=== PATIENT | male | born 1990 | race Caucasian/White ===

== ENCOUNTER → 2021-03-26 10:12 | Outpatient (CLI) | payer OTHER, SELFPAY ==
--- NOTE | ~2021-03-26 | CT_ITS ---
EXAMINATION: CT abdomen pelvis w con INDICATION: Abdominal distention TECHNIQUE: Computed tomographic images of the abdomen and pelvis were obtained after the administrati on of 100 cc of Omnipaque 350 intravenous contrast. The dose-length product (DLP) was 1196.57 mGy-cm. Automated exposure control and iterative reconstruction technique were employed. COMPARISON: None available FINDINGS: Minimal dependent atelectasis is present in the lung bases. The heart size is normal. The l iver, spleen, pancreas, gallbladder, and adrenal glands are normal. There is a 2.6 cm cyst of the lef t kidney. The right kidney is unremarkable. No pathologically enlarged abdominal or pelvic lymph node s are identified. There is no free intraperitoneal gas or evidence of bowel obstruction. The appendix is normal. IMPRESSION: 1. No CT correlate for the patient's symptoms. Reviewed, dictated and finalized at location B.
== END ==
PROVIDERS: PCP Family Medicine; Visit Provider Family Medicine
DX: R14.0 Abdominal distension (gaseous) (principal); N28.89 Other specified disorders of kidney and ureter
CPT/HCPCS: 74177; Q9967

== ENCOUNTER 2021-06-09 01:08 | Day surgery (SDC) | payer OTHER, SELFPAY ==
[2021-05-27 14:10] VITALS: BMI 33.5
--- NOTE | 2021-06-09 06:56 | WPDGICN ---
Assessment and Plan Assessment and plan (1) GERD (gastroesophageal reflux disease): Qualifiers: Esophagitis presence: without esophagitis Qualified Code(s): K21.9 - Gastro-esophageal reflux disease without esophagitis Code(s): K21.9 - Gastro-esophageal reflux disease without esophagitis Status: Acute Assessment and Plan: EGD with possible biopsy or dilatation or cautery. GI Consult Note Consult date/time: 06/09/21 06:56 HPI: Thuan Romo is a 31 year old male Who suffers from gastroesophageal reflux symptoms. Many foods he avoids because they make him uncomfortable; give him discomfort in his epigastric area or up into the throat. he gave up many foods such as coffee, spices, tomato based products to try to improve his symptoms naturally and he is actually feeling better. He is hoping he can get back to eating normal food again. He has been taking pantoprazole for 3 months and feels that has helped.He also has any extreme problem with insomnia. Review of Systems Review of Systems: All systems reviewed & are unremarkable except as noted in HPI and below PMFSH Past Medical History Medical History Asthma BMI 33.0-33.9,adult BMI 34.0-34.9,adult GERD (gastroesophageal reflux disease) Family History Family History Father Hypertension Family history of diabetes mellitus in first degree relative Mother Hypertension Diabetes mellitus Fibromyalgia Grandparent Family history of coronary artery disease Sibling Hypothyroid Other Carcinoma of colon Family history of malignant neoplasm of cervix Family history of malignant neoplasm of ovary Family history of primary malignant neoplasm of liver Social History Social History Second hand tobacco smoke exposure: No Alcohol intake: current Drinks per week: 1 Alcohol use details: beer, wine Substance use: never Substance use type: does not use Living arrangements: with family 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 Gender identity (if verbalized by the patient): Male Spiritual care concerns: No Agree to blood products: Yes Meds Home Medications and Allergies Home Medications Medication Instructions Recorded Confirmed Type alprazolam 0.25 mg tablet 0.25 mg PO BID PRN #30 tablet 04/13/21 05/31/21 Rx trazodone 50 mg tablet 50 mg PO .qhs #30 tablet 05/10/21 05/31/21 Rx pantoprazole 40 mg tablet,delayed 40 mg PO QAM #30 tablet 05/19/21 05/31/21 Rx release paroxetine HCl 10 mg tablet 10 mg PO DAILY #30 tablet 05/26/21 05/31/21 Rx hydroxyzine pamoate 25 mg capsule 25 mg PO TID PRN #30 cap 06/01/21 06/09/21 Rx Allergies Allergy/AdvReac Type Severity Reaction Status Date / Time codeine Allergy Unknown Unknown Verified 05/27/21 14:09 erythromycin base Allergy Unknown Unknown Verified 05/27/21 14:09 Exam Const: General: alert Orientation/consciousness: patient oriented x3 Resp: Auscultation: clear to auscultation bilaterally Cardio: Rhythm: regular rhythm GI: GI Palp: Yes Soft to palpation and No Tenderness to palpation present (GI) Neuro: General: patient oriented x3
--- NOTE | 2021-06-09 07:02 | P.PNAN_ITS ---
Anes - Initial Pre Proc Eval Procedure: Operation Date: 06/09/21 10:00 Proposed Procedures p Esophagogastroduodenoscopy - Darion Rosales MD Date/Time: 06/09/21 07:02 Surgeon: Darion Rosales MD Pre Op Diagnosis: GERD Patient Data Age: 31 Gender: M Height: 1.8 m Weight: 109 kg Allergies Allergy/AdvReac Type Severity Reaction Status Date / Time codeine Allergy Unknown Unknown Verified 05/27/21 14:09 erythromycin base Allergy Unknown Unknown Verified 05/27/21 14:09 Home Medications Medication Instructions Recorded Confirmed Type alprazolam 0.25 mg tablet 0.25 mg PO BID PRN #30 tablet 04/13/21 05/31/21 Rx trazodone 50 mg tablet 50 mg PO .qhs #30 tablet 05/10/21 05/31/21 Rx pantoprazole 40 mg tablet,delayed 40 mg PO QAM #30 tablet 05/19/21 05/31/21 Rx release paroxetine HCl 10 mg tablet 10 mg PO DAILY #30 tablet 05/26/21 05/31/21 Rx hydroxyzine pamoate 25 mg capsule 25 mg PO TID PRN #30 cap 06/01/21 Rx Patient hx anesthesia problems: none Family hx anesthesia problems: none Results Review: All pre-operative results and documents have been reviewed as part of the pre-operative evaluation. [facility] Past Medical History Medical History (Updated 06/09/21 @ 07:03 by Yossi Jay DO) Asthma BMI 33.0-33.9,adult BMI 34.0-34.9,adult GERD (gastroesophageal reflux disease) Family History Family History Father Hypertension Family history of diabetes mellitus in first degree relative Mother Hypertension Diabetes mellitus Fibromyalgia Grandparent Family history of coronary artery disease Sibling Hypothyroid Other Carcinoma of colon Family history of malignant neoplasm of cervix Family history of malignant neoplasm of ovary Family history of primary malignant neoplasm of liver Social History Social History Second hand tobacco smoke exposure: No Alcohol intake: current Drinks per week: 1 Alcohol use details: beer, wine Substance use: never Substance use type: does not use Living arrangements: with family 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 Gender identity (if verbalized by the patient): Male Spiritual care concerns: No Agree to blood products: Yes Anes - Eval Final PreProcedure Day of Procedure 06/09/21 07:02 Patient weight: obese Heart: regular rate and rhythm Lungs: clear to auscultation and normal air movement Airway: Mallampati scale class II Neurological: alert and oriented Last oral intake: >/= 8 hours ASA classification: II Emergent: no Anesthetic plan: proceed Anesthesia type and monitoring: general GIVS and standard monitoring Results Review: All pre-operative results and documents have been reviewed as part of the pre-operative evaluation. Informed Consent: The patient's anesthetic plan and its attendant risks and benefits were discussed with the patient/family/POA. Questions were solicited and answers provided to the satisfaction of the patient/family/POA.
[2021-06-09 08:40] VITALS: BP 139/87; PULSE 80; RESP 18; TEMP 36.1; O2SAT 97; BMI 33.9
[2021-06-09] MEDS: LACTATED RINGERS 1,000 ML 150 ML IV CONT (09:12)
[2021-06-09 09:55] VITALS: BP 112/74; PULSE 77; RESP 19; O2SAT 96
[2021-06-09 10:05] VITALS: BP 123/84; PULSE 74; RESP 25; O2SAT 98
[2021-06-09 10:15] VITALS: BP 122/90; PULSE 64; RESP 23; O2SAT 94
== END 2021-06-09 10:22 | disposition home or self-care (01) ==
PROVIDERS: PCP Family Medicine; Visit Provider Internal Medicine Gastroenterology
PROC: 0DJ08ZZ Inspection of Upper Intestinal Tract, Via Natural or Artificial Opening Endoscopic (ICD-10-PCS; CPT 43235; principal; 2021-06-09 10:00)
DX: K21.9 Gastro-esophageal reflux disease without esophagitis (principal); E66.9 Obesity, unspecified; Z68.33 Body mass index [BMI] 33.0-33.9, adult
CPT/HCPCS: 43235; J2001; J2704; J7120

== ENCOUNTER 2023-07-17 13:54 | Outpatient (CLI) | payer BC, SELFPAY ==
--- NOTE | ~2023-07-17 | XR_ITS ---
EXAM: XR cervical spine 4-5V DATE: 07/17/2023 14:09 HISTORY: M54.2 - Cervicalgia . COMPARISON: CT C-spine 05/29/2006. FINDINGS: Craniocervical association and atlantoaxial joint are aligned. No prevertebral soft tissue swelling. Adenoid hypertrophy. Trace retrolistheses at C3-4 and C5-6. Remaining vertebral bodies are aligned. Vertebral body heights are maintained. Mild disc space narrowing at C3-4 and C5-6. Normal f acets and posterior elements. IMPRESSION: Minimal retrolistheses and mild degenerative disc disease at C3-4 and C5-6. Reviewed, dictated and finalized at location K. FEST/ORDER ORGANIZER PRINT ORDERS IMPRESSION: Minimal retrolistheses and mild degenerative disc disease at C3-4 a nd C5-6.
== END 2023-07-17 13:55 ==
LOC: MICIMG 13:56
PROVIDERS: PCP Physician Assistant; Visit Provider Physician Assistant
DX: M43.12 Spondylolisthesis, cervical region (principal); M50.322 Other cervical disc degeneration at C5-C6 level; M50.31 Other cervical disc degeneration, high cervical region
CPT/HCPCS: 72050

== ENCOUNTER 2023-11-20 08:39 | Outpatient (CLI) | payer BC, SELFPAY ==
--- NOTE | ~2023-11-20 | MM_ITS ---
EXAMINATION: MM diagnostic cindy BI w evin HISTORY: Generalized lumpiness TECHNIQUE: 3-D tomosynthesis images of the bilateral breasts were performed and synthetic 2-D images were generated. CAD analysis was submitted and interpreted. COMPARISON: None FINDINGS: Breast parenchyma is predominantly fatty replaced. No suspicious mass lesion or distortion seen in either breast. No suspicious microcalcifications. IMPRESSION: No mammographic evidence for malignancy. BI-RADS Category 1: Negative Reviewed, dictated and finalized at location .
== END 2023-11-20 08:40 ==
LOC: MICIMG 08:40
PROVIDERS: PCP Family Medicine; Visit Provider Nurse Practitioner Family
DX: N63.0 Unspecified lump in unspecified breast (principal); R92.8 Other abnormal and inconclusive findings on diagnostic imaging of breast
CPT/HCPCS: 77062; 77066; G0279

== ENCOUNTER 2024-08-06 17:30 | Emergency (ER) | payer OTHER, SELFPAY ==
[2024-08-06 17:40] VITALS: BP 143/77; PULSE 87; RESP 16; TEMP 37.9; O2SAT 97
--- NOTE | 2024-08-06 17:51 | ED_ITS ---
HPI - URI/Sore Throat General Chief Complaint: Upper Respiratory Infection Stated Complaint: Sinus / RT Eye swollen Time Seen by Provider: 08/06/24 17:45 Source: patient Mode of arrival: ambulatory Limitations: no limitations History of Present Illness HPI Narrative: Thuan is a 34-year-old male patient presenting to the clinic today with complaints of sinus congestion and right eyelid swelling. He reports he noticed a stye there last week and placed some E-Mycin ointment in that resolved however now he has developed some redness and swelling to the right upper eyelid. He denies any pain or itching at this time. Temperature is 37.9? C in the clinic today. States he has had nasal congestion and pressure for the past 2 weeks. History of chronic sinusitis. Saw his primary care doctor 8 days ago and they gave him a shot of Rocephin in the office for chronic sinusitis. They also gave him air supra inhaler for bronchitis. MD elicited complaint: sore throat and nasal congestion Related Data Allergies Allergy/AdvReac Type Severity Reaction Status Date / Time codeine AdvReac Intermediate Rash Verified 08/06/24 17:50 erythromycin base AdvReac Intermediate Rash Verified 08/06/24 17:50 Review of Systems Review of Systems: Pertinent positives per HPI. Patient denies any fever, chills, rash, visual changes, dizziness, shortness of breath, chest pain, palpitations, nausea, vomiting, diarrhea, constipation, abdominal pain, or any urinary issues. [facility] Past Medical History Medical History (Updated 08/06/24 @ 17:59 by Elfego Tirado APRN) BMI 36.0-36.9,adult Otitis media of left ear Impacted cerumen of both ears Persistent headaches Asthma GERD (gastroesophageal reflux disease) Surgical History Surgical History Hx of tonsillectomy Family History Family History Father Hypertension Family history of diabetes mellitus in first degree relative Diabetes mellitus Mother Hypertension Diabetes mellitus Fibromyalgia Grandparent Family history of coronary artery disease Sibling Hypothyroid Other Carcinoma of colon Family history of malignant neoplasm of cervix Family history of malignant neoplasm of ovary Family history of primary malignant neoplasm of liver Social History Social History Smoking status: Never smoker Second hand tobacco smoke exposure: Yes Alcohol intake: current Drinks per week: 1 Alcohol use details: beer, wine Substance use: never Substance use type: does not use Do You Feel Safe in your Home?: Yes Lack of Transportation: No Lack of Food: Never True Current Housing: I Have Housing Concerned About Future Housing: No Difficulty Paying Gas/Electric Bills: No Difficulty Paying for Meds: No Currently Unemployed: No Education: Associate Degree Difficulty w/ Childcare or Family Care: No Living arrangements: with family Occupation/Education: occupation 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 There is no relevant family history pertinent to the patient complaint. Exam Narrative: General: Well-developed, well nourished, in no apparent distress Head: Normocephalic, atraumatic Eyes: Pupils equally round and reactive to light bilaterally, EOM intact, sclera and conjunctive clear, no discharge, lids normal Ears: TMs intact and clear, ear canals clear, no drainage, grossly hearing normal. Nose: Nares patent, clear nasal discharge, moderate inflammation, ethmoid and maxillary sinus tenderness. Mouth: Oral pharynx without lesions or masses, good dentition, MMM. Postnasal drip Neck: Supple, trachea midline, no enlargement of anterior or posterior cervical nodes, no thyroid masses or goiter palpable. Cardio: Regular rate and rhythm, s1 and s2 normal, no murmur appreciated. Resp: Clear to auscultation bilaterally, no rhonchi, rales, wheezing or rubs Course Course Emergency Course: Portions of this record may have been created with voice recognition software. Level of Care: Express Care Visit Vital Signs Vital signs: Vital Signs Temperature 37.9 C H 08/06/24 17:40 Pulse Rate 87 08/06/24 17:40 Respiratory Rate 16 08/06/24 17:40 Blood Pressure 143/77 H 08/06/24 17:40 Pulse Oximetry 97 08/06/24 17:40 Oxygen Delivery Room Air 08/06/24 17:40 Temperature 37.9 C H 08/06/24 17:40 Pulse Rate 87 08/06/24 17:40 Respiratory Rate 16 08/06/24 17:40 Blood Pressure 143/77 H 08/06/24 17:40 Pulse Oximetry 97 08/06/24 17:40 Oxygen Delivery Room Air 08/06/24 17:40 Vital signs reviewed MDM - URI/Sore Throat MDM Narrative Medical decision making narrative: At the time of visit patient is resting comfortably on the exam table. Patient appears to be nontoxic. Plan: I suspect patient has blepharitis to the right upper eyelid and rhin osinusitis. Prescription for Augmentin and prednisone was sent to the pharmacy. Supportive measures were discussed with the patient and they voiced understanding discharge instructions and agrees to treatment plan. Return precautions reviewed Differential Diagnosis Differential diagnosis: Likely upper respiratory infection, otitis media, sinusitis, viral infection, bronchitis, influenza, pharyngitis and other (COVID) Discharge Plan Discharge Clinical Impression: Blepharitis, right eye, Acute bacterial rhinosinusitis Patient Disposition: Home, Self-Care Condition: Stable Instructions: Antibiotic Form, Sinusitis (ED), Blepharitis (ED) Additional Instructions: Take prescription medications only as prescribed-prednisone and Augmentin May apply cool compresses to the right eye to a alleviate swelling May take Benadryl 25-50 mg every 6 hours for swelling/itching Increase fluids and stay well hydrated Tylenol/motrin for pain/fever Flonase and OTC antihistamines as directed Vicks vapor rub to open sinuses Sinus rinses for congestion Cepacol spray, cough drops, throat lozenges, warm tea with honey/lemon, gargle salt water to soothe throat BRAT diet for diarrhea Clear liquids x 24 hours then advance as tolerated for nausea/vomiting Go to the ED if you develop a worsening in your condition- high fever not controlled by Tylenol or Motrin, dehydration, weakness, lethargy, shortness of breath, or chest pain. Follow up with your PCP in 3-5 days if symptoms persist. Patient Language: Spanish Prescriptions: New prednisone 20 mg tablet 40 mg PO DAILY 5 Days Qty: 10 0RF amoxicillin-pot clavulanate 875-125 mg tablet 1 tablet PO Q12H 10 Days Qty: 20 0RF No Action Airsupra 90-80 mcg/actuation HFA aerosol inhaler 2 inh inhalation 6XD PRN (Reason: shortness of breath) Qty: 32.1 3RF olopatadine 0.2 % drops 1 drp EACH EYE DAILY Qty: 2.5 0RF omeprazole 20 mg capsule,delayed release(DR/EC) 20 mg PO DAILY Qty: 90 0RF Follow-up/Referrals: Jaylen Munoz MD [Primary Care Provider] - Time of Disposition: 17:55 Quality NIHSS Nursing Documentation ED NIHSS nursing documentation: reviewed/agree
--- OUTSIDE RECORDS SUMMARY | 2024-08-06 18:09 | XMS_ITS | Clinical Summary ---
Author Organization [facility] Address [address] [place] [address] Care Team Providers Care Mechanical Technical Service Specialist Name Role Phone Jaylen Munoz MD Primary Care Provider [phone] Allergies Active Allergy Reactions Criticality Noted Date Comments Codeine GI Upset 12/26/2019 Erythromycin Rash Low 12/26/2019 Active Problems Problem Noted Date Diagnosed Date Epigastric pain 12/26/2019 Social History Tobacco Use Types Packs/Day Years Used Date Smoking Tobacco: Never Smokeless Tobacco: Never Alcohol Use Standard Drinks/Week Comments Yes 0 (1 standard drink = 0.6 oz pur e alcohol) weekly Sex and Gender Information Value Date Recorded Sex Assigned at Not on file Legal Sex Male 4:16 PM CDT Gender Identity Not on file Sexual Orientation Not on file Last Filed Vital Signs Vital Sign Reading Time Taken Comments Blood Pressure 169/97 03/15/2021 4:20 PM CDT Pulse 142 03/15/2021 4:20 PM CDT Temperature 36.3 C (97.4 F) 03/15/2021 4:20 PM CDT Respiratory Rate 22 03/15/2021 4:20 PM CDT Oxygen Saturation 100% 03/15/2021 4:20 PM CDT Inhaled Oxygen Concentration - - Weight 120.2 kg (265 lb) 03/15/2021 4:20 PM CDT Height 185.4 cm (6' 1 ) 03/15/2021 4:20 PM CDT Body Mass Index 34.96 03/15/2021 4:20 PM CDT Plan of Treatment Health Maintenance Due Date Last Done Comments Annual Physical 02/10/1995 DTaP, Tdap and Td Vaccines (6 - Tdap) 02/10/2003 12/17/1997, 08/30/1993, 1992, Additional history exists Hepatitis C 02/10/2010 COVID-19 Vaccine ( season) 2024 06/18/2021, 07/23/2020, 06/25/2020 Influenza Adult (#1) 2024 03/06/2021, 02/14/2020, 02/20/2019, Additional history exists Hepatitis B Vaccines Completed 06/26/2002, 01/25/2002, 12/17/2001 HPV Vaccines Aged Out No longer eligi ble based on patient's age to complete this topic Meningococcal B Vaccine Aged Out No l onger eligible based on patient's age to complete this topic Meningococcal Vaccine Aged Out No carlie hina eligible based on patient's age to complete this topic Pneumococcal Vaccine: Pediatrics (0 to 5 Years) and At-Risk Patients (6 to 64 Years) Aged Out No longer eligible based on patient's age to complete this topic RSV Immunizations Under 20 Months Aged Out No longer eligible based on patient's age to complete this topic [place] [address] [facility] Care Teams Mechanical Technical Service Specialist Relationship Specialty Start Date End Date Jaylen Munoz MD [address] [address] PCP - General FAMILY PRACTICE 12/26/19
--- OUTSIDE RECORDS SUMMARY | 2024-08-06 18:09 | XMS_ITS | CONTINUITY OF CARE DOCUMENT ---
Author Name fallon jose armandonathen Address Unknown Organization [facility] Address [address] [place] [address] [address] [place] [address] Phone [phone] Care Team Providers Care Beauty Director Name Role Phone Laura RAY, Goran Jamil Unavailable [phone] MONIQUE RAY, KLEIN F Unavailable MONIQUE RAY, KELIN F Unavailable [phone] INSURANCE PROVIDERS Payer name Policy type / Coverage type [place] red green party ID BLUE [place] [place] Blue Shield [id number] BLUE SHIELD [facility] Blue Shield [id number]
--- OUTSIDE RECORDS SUMMARY | 2024-08-06 18:09 | XMS_ITS | Clinical Summary ---
Author Organization [facility] Address [address] [place] [address] Care Team Providers Care Coremaker Supervisor Name Role Phone Jaylen Munoz MD Primary Care Provider [phone] Source Comments [facility],non-owned Affiliates and Associated Physician Practices is amultiple site organization consisting of ambulatory clinics and hospital sitesin [place], [place], [place] and [place]. This disclosure is being madepursuant to the Care Everywhere program and may not contain all information available regarding this patient. Last updated 18.[facility] Allergies No known active allergies Medications Be aware that medications may not be up to date on this document. Always verify current medications with the patient. No known medications Social History Tobacco Use Types Packs/Day Years Used Date Smoking Tobacco: Never Smokeless Tobacco: Never Sex and Gender Information Value Date Recorded Sex Assigned at Not on file Gender Identity Not on file Sexual Orientation Not on file Last Filed Vital Signs Vital Sign Reading Time Taken Comments Blood Pressure 120/86 07/16/2017 3:04 PM COMMUNICATIONS MEDIA PROFESSOR Pulse 91 07/16/2017 3:04 PM COMMUNICATIONS MEDIA PROFESSOR Temperature 36.9 C (98.4 F) 07/16/2017 3:04 PM COMMUNICATIONS MEDIA PROFESSOR Respiratory Rate 16 07/16/2017 3:04 PM COMMUNICATIONS MEDIA PROFESSOR Oxygen Saturation 95% 07/16/2017 3:04 PM COMMUNICATIONS MEDIA PROFESSOR Inhaled Oxygen Concentration - - Weight 122.5 kg (270 lb) 07/16/2017 3:04 PM COMMUNICATIONS MEDIA PROFESSOR Height 182.9 cm (6') 07/16/2017 3:04 PM COMMUNICATIONS MEDIA PROFESSOR Body Mass Index 36.62 07/16/2017 3:04 PM COMMUNICATIONS MEDIA PROFESSOR Plan of Treatment Health Maintenance Due Date Last Done Comments HIV SCREENING 02/10/2007 HEPATITIS C SCREENING 02/06/2010 DTAP/TDAP/TD VACCINES (1 - Tdap) 02/10/2011 HEPATITIS B VACCINE (1 of 3 - 19+ 3-dose series) 02/10/2011 COVID-19 VACCINE (1 - 2023-2 5 season) 2024 INFLUENZA VACCINE (#1) 2024 DEPRESSION SCREENING 05/22/2024 ZOSTER VACCINE (1 of 2) 02/10/2042 HIB VACCINE Aged Out No longer eligi ble based on patient's age to complete this topic HPV VACCINE Aged Out No longer eligi ble based on patient's age to complete this topic MENINGOCOCCAL (Group B) VACC INE SHARED DECISION-MAKING Aged Out No longer eligibl e based on patient's age to complete this topic MENINGOCOCCAL GROUPS A/C/Y/W VACCINE Aged Out No longer eligible b ased on patient's age to complete this topic PNEUMOCOCCAL VACCINE Aged Out No long er eligible based on patient's age to complete this topic Care Teams Coremaker Supervisor Relationship Specialty Start Date End Date Jaylen Munoz MD [address] [place] [address] PCP - General Family Medicine 07/16/17
--- OUTSIDE RECORDS SUMMARY | 2024-08-06 18:09 | XMS_ITS | Patient Health Record ---
Author Organization [facility] Address [address] [place] [address] Care Team Providers Care Finishing Tunnel Operator Name Role Phone Valente Burch Primary Care Provider [phone] Reason For Referral No Information Immunizations Vaccine Route Administration Date Status Comme nts COVID-19 Moderna 2nd IM Intramuscular 07/23/2020 Administered EUA date 0. Screening reviewed and consent signed. Patient tolerated well. COVID-19 Moderna 1ST IM Intramuscular 06/25/2020 Administered EUA date 0. Screening reviewed and consent signed. Patient tolerated well. Plan Of Treatment No Information
--- OUTSIDE RECORDS SUMMARY | 2024-08-06 18:09 | XMS_ITS | Clinical Summary ---
Author Organization [facility] Address [address] [place] [address] Care Team Providers Care Telecine Operator Name Role Phone Jaylen Munoz MD Primary Care Provider [phone] Allergies No known active allergies Medications buPROPion XL (WELLBUTRIN XL) 300 mg 24 hr tablet Take 1 tablet (300 mg total) by mouth daily 30 tablet 5 4 Active Additional Information Patient not taking.Reported on 11/03/2023 naltrexone (DEPADE) 50 mg tablet Take 1 tablet (50 mg total) by mouth daily 30 tablet 5 4 Active Additional Information Patient not taking.Reported on 11/03/2023 omeprazole (PriLOSEC) 20 mg capsule Take 1 capsule (20 mg total) by mouth daily 4 Active Active Problems Problem Noted Date Diagnosed Date Class 2 severe obesity due t o excess calories with serious comorbidity and body mass index (BMI) of 36.0 to 36.9 in adult 11/04/2023 Pre-diabetes 05/16/2023 NAFLD (nonalcoholic fatty liver disease) 022 Resolved Problems Problem Noted Date Diagnosed Date Resolved Date BMI 39.0-39.9,adult 05/07/2022 11/04/19 24 Abnormal AST and ALT 05/07/2022 024 Social History Tobacco Use Types Packs/Day Years Used Date Smoking Tobacco: Never Passive Smoke Exposure: Never Smokeless Tobacco: Never AUDIT-C Answer Date Recorded Q1: How often do you have a drink containing alc ohol? Monthly or less 05/11/2023 Average Number of Drinks Not on file 023 Frequency of Binge Drinking Not on file 04/22 Personal Safety Answer Date Recorded Getting School Help Needed Not on file 05/10 Sex and Gender Information Value Date Recorded Sex Assigned at Not on file Legal Sex Male 1:11 PM LITERATURE PROFESSOR Gender Identity Male 05/04/2022 1:33 PM LITERATURE PROFESSOR Sexual Orientation Straight 05/04/2022 1: 33 PM LITERATURE PROFESSOR Obstetrics History Last Filed Vital Signs Vital Sign Reading Time Taken Comments Blood Pressure 128/87 11/03/2023 10:30 AM CDT Pulse 72 11/03/2023 10:30 AM CDT Temperature 36.8 C (98.2 F) 11/03/2023 10:30 AM CDT Respiratory Rate - - Oxygen Saturation 98% 11/03/2023 10: 30 AM CDT Inhaled Oxygen Concentration - - Weight 119.1 kg (262 lb 9.6 oz) 024 10:30 AM CDT Height 180.3 cm (5' 11 ) 11/03/2023 10: 30 AM CDT Body Mass Index 36.63 11/03/2023 10:30 AM CDT Plan of Treatment Health Maintenance Due Date Last Done Comments Depression Screening 1992 DTaP/Tdap/Td Vaccine (6 - Tdap) 02/10/2003 12/17/1997, 08/30/1993, 1992, Additional history exists Varicella Vaccines (1 of 2 - 13+ 2-dose series) 02/10/2005 Regular Well Visit/Exam 18-64 02/10/2010 Pneumococcal vaccine <65 (1 of 2 - PCV) 02/10/2011 Covid-19 Vaccine ( season) 2024 03/24/2022, 06/18/2021, 07/23/2020, Additional history exists Influenza Vaccine (#1) 2024 , 03/06/2021, 02/14/2020, Additional history exists Hepatitis C Screening Completed 05/06/2022 HPV Vaccines Aged Out No longer eligi ble based on patient's age to complete this topic Procedures Procedure Name Priority Date/Time Associated Diagnosis Comments HEPATITIS C ANTIBODY Routine 05/06/2022 11:20 AM LITERATURE PROFESSOR NAFLD (nonalcoholic fatty liver disease) from Last 3 Months or Most Recently Relevant to Health Maintenance Results * Hepatitis C antibody (05/06/2022 11:20 AM LITERATURE PROFESSOR) Hep C Ab Nonreactive Nonreactive [facility] Comment:Antibodies to HCV no t detected. Does NOT exclude the possibility of recent exposure to HCV. Current interpretive data was last revised on 22 Blood 05/06/2022 11:2 0 AM LITERATURE PROFESSOR 05/06/2022 1:36 PM LITERATURE PROFESSOR Nazario Chino MD LAB MICROBIOLOGY - GENER AL ORDERABLES Final Result [facility] Department [place] [address] from Last 3 Months or Most Recently Relevant to Health Maintenance Insurance [place] [address] Care Teams Telecine Operator Relationship Specialty Start Date End Date Jaylen Munoz MD PCP - General Family Medicine 06/14/21
--- OUTSIDE RECORDS SUMMARY | 2024-08-06 18:10 | XMS_ITS | Referral Summary ---
Author Organization [facility] Address [address] [place] [address] Care Team Providers Care Desizing Pad Operator Name Role Phone Jaylen Munoz MD Primary Care Provider [phone] Allergies No known active allergies Medications buPROPion [...] on file Legal Sex Male 1:11 PM VETERINARY PARASITOLOGIST Gender Identity Male 05/04/2022 1:33 PM VETERINARY PARASITOLOGIST Sexual Orientation Straight 05/04/2022 1: 33 PM VETERINARY PARASITOLOGIST Last Filed Vital Signs Vital Sign Reading [...] 11/03/2023 10:30 AM CDT Plan of Treatment Not on file Procedures Procedure Name Priority Date/Time Associated Diagnosis Comments HEPATITIS C ANTIBODY Routine 05/06/2022 11:20 AM VETERINARY PARASITOLOGIST NAFLD (nonalcoholic fatty liver disease) from Last 3 Months or Most Recently Relevant to Health Maintenance Results * Hepatitis C antibody (05/06/2022 11:20 AM VETERINARY PARASITOLOGIST) Hep C Ab Nonreactive Nonreactive [facility] Comment:Antibodies to HCV no t detected. Does NOT exclude the possibility of recent exposure to HCV. Current interpretive data was last revised on 22 Blood 05/06/2022 11:2 0 AM VETERINARY PARASITOLOGIST 05/06/2022 1:36 PM VETERINARY PARASITOLOGIST Nazario Chino MD LAB MICROBIOLOGY - GENER AL ORDERABLES Final Result [facility] Department [place] [address] from Last 3 Months or Most Recently Relevant to Health Maintenance [place] [place] [place] Care Teams Desizing Pad Operator Relationship Specialty Start Date End Date Jaylen Munoz MD PCP - General Family Medicine 06/14/21
--- OUTSIDE RECORDS SUMMARY | 2024-08-06 18:11 | XMS_ITS | CONTINUITY OF CARE DOCUMENT ---
Author Name fallon jose armandonathen Address Unknown Organization [facility] Address [address] [place] [address] [address] [place] [address] Phone [phone] Care Team Providers Care Director University Name Role Phone Laura RAY, Goran Jamil Unavailable [phone] MONIQUE RAY, KELIN F Unavailable [phone] MONIQUE RAY, KELIN F Unavailable [phone] INSURANCE PROVIDERS Payer name Policy type / Coverage type [place] red libertarian ID [employer] [employer] [place] Blue Shield [id number] BLUE SHIELD [facility] Blue Shield [id number]
== END 2024-08-06 18:02 | disposition home or self-care (01) ==
PROVIDERS: Emergency Provider Nurse Practitioner Family; PCP Family Medicine
DX: H01.001 Unspecified blepharitis right upper eyelid (principal); J01.80 Other acute sinusitis; K21.9 Gastro-esophageal reflux disease without esophagitis; J45.909 Unspecified asthma, uncomplicated; B96.89 Other specified bacterial agents as the cause of diseases classified elsewhere
CPT/HCPCS: 99213; G0463